=== PATIENT | female | born 1990 | race African-American/Black ===

== ENCOUNTER 2017-12-06 09:57 | Emergency (ER) | payer MEDICAID, MEDICARE ==
[~2017-12-06] VITALS: Ht 154.9 cm; Wt 107.0 kg
[2017-12-06 10:26] VITALS: BP 151/91
== END 2017-12-06 11:48 | disposition home or self-care (01) ==
LOC: ER 11:42
DX: M79.604 Pain in right leg (principal); W18.39XA Other fall on same level, initial encounter; Y93.89 Activity, other specified; Y92.89 Other specified places as the place of occurrence of the external cause; Y99.8 Other external cause status
CPT/HCPCS: 99282